=== PATIENT | female | born 1995 | race Two or more races ===

== ENCOUNTER 2024-07-26 19:37 | Emergency (ER) | payer MEDICAID, SELFPAY ==
[2024-07-26 19:38] VITALS: BMI 33.5
[2024-07-26 20:41] VITALS: BP 121/85; PULSE 84; RESP 18; TEMP 37; O2SAT 96
--- NOTE | 2024-07-26 20:43 | EDNOTE_ITS ---
ED Abdominal Pain RME/HPI General Chief Complaint: Abdominal Pain Stated complaint: LLQ PAIN Time seen by provider: 07/26/24 20:29 Arrival date/time: 07/26/24 19:37 RME / HPI RME / HPI narrative: This section includes all my notes and documentations, including HPI, PE, and ED course. Alan Rendon MD HPI: 29yo female presents to the ED for a chief complaint of groin pain that radiates down her left leg x Thursday, about 40 hours ago. Patient states her pain worsens when she walks. She reports associated urinary frequency, tingling to her thighs, and N/V. She denies any fever, chills, back pain, urinary/bowel incontinence or any other associated symptoms. She denies any history of similar symptoms. Denies any abdominal PSH. Denies any possibility of being , reporting she just finished her period on Thursday. No other complaints reported. ROS: All negative except as documented in HPI. Physical Exam: General: Alert and oriented. No acute distress when remaining still. Eyes: Conjunctivae and lids clear. ENT: No nasal congestion. Neck: Supple. Heart: RRR. Lungs: No respiratory distress. Good air movement. No rhonchi, wheezing, rales. Abdomen: Soft and nontender. Back: Equivocal lumbar tenderness. Legs: No clubbing, cyanosis, edema. Skin: Warm and dry. Neuro: Alert and oriented X 3. No peripheral motor deficits. I reviewed all diagnostic test results. My review of the abdominal CT report is NAD. My review of the lumbar spine CT report is L5-S1 6 mm central lumbar disc bulge displacing the left S1 nerve, Blood tests and urine tests remarkable for UTI. At this point, diagnoses include UTI and lumbar radiculopathy. Prescribed ABX and pain medications and recommended more outpatient workup. Based on my best medical judgment, made decision no further evaluation or treatment indicated at this time. Patient understands and agrees to the discharge instructions customized and printed, see below. Discharge Instructions from Dr. Rendon: --After evaluation, your pain radiating into the left leg is due to Sciatica (same as Lumbar Radiculopathy or Spinal Stenosis) where pinched nerve is causing your symptoms.? --This condition is difficult because normal pain medications don?t work very well on nerve pain. --Despite the pain, try to resume your normal chores and activities.? Because inactivity is terrible for this condition.? And activity won?t make your condition worse.? Use a cane of stick in your right hand to help stand and walk.? --Use Toradol and Cyclobenzaprine and lidocaine patches (to lower back if painful) as needed.? Don't expect the pain to go away completely, hoping to take the edge off.?? --When resting and sleeping, try right sided position (with your knees to your chest and bending forward).? This can take some pressure off the nerve and help your pain. --Apply ice or heat if helpful. --For UTI, take cefdinir to kill the germs causing the infection. For good hydration, increase oral fluid and maintain clear urine. If dark or yellow, increase oral fluid. --See a private doctor (outside the ER) on 07/29/2024 for recheck and further care. Ask to review all test results and official radiology reports, to make sure you receive all necessary follow-ups and monitoring, including final urine culture results. Ask for help with MRI imaging. You need to have MRI imaging to confirm the diagnosis of pinched nerve and assess the severity to get the best treatments. Some elective have surgery if severe. --Seek immediate medical care with paralysis in your foot, losing control of your bladder or bowels, saddle numbness (anal numbness), or with any concerns.?? Alan Rendon MD Related Data Previous Rx's ?Medication ?Instructions ?Recorded albuterol sulfate 90 mcg/actuation 2 puff inhalation Q 4H #6.7 grams 05/19/17 aerosol inhaler (ProAir HFA) meloxicam 15 mg tablet 15 mg PO QDAY #30 tabs 12/24 cetirizine 10 mg tablet (Zyrtec) 10 mg PO QDAY #30 tab s 08/13/20 cetirizine 5 mg-pseudoephedrine ER 1 tab PO BID #10 ta bs 08/13/20 120 mg tablet,extended release,12hr (Allergy Relief-D (cetirizine)) ibuprofen 600 mg tablet 600 mg PO QID PRN fever or p ain 08/13/20 #30 tabs albuterol sulfate 90 mcg/actuation 2 puff inhalation Q 6H PRN 02/12/21 aerosol inhaler (Ventolin HFA) shortness of breath or wheezing #8.5 grams cetirizine 10 mg tablet 10 mg PO QDAY PRN allergy sy mptoms 02/12/21 #30 tabs fluticasone 232 mcg-salmeterol 14 1 inh inhalation Q12 H #1 ea 02/12/21 mcg/actuation breath activated powdr omeprazole 20 mg capsule,delayed 20 mg PO QDAY #30 cap s 02/12/21 release amoxicillin 875 mg tablet 875 mg PO BID #20 tabs 08/31 cefdinir 300 mg capsule 300 mg PO BID #14 caps 07/27 cyclobenzaprine 10 mg tablet 10 mg PO Q8H PRN muscle s pasm #30 07/27/24 tabs ketorolac 10 mg tablet 10 mg PO Q8H PRN pain 5 days #10 07/27/24 tabs lidocaine 5 % topical patch 2 patch topical QDAY PRN p ain #30 07/27/24 (Lidoderm) ea Allergies Allergy/AdvReac Type Severity Reaction Status Date / Time No Known Allergies Allergy Verified 08/31/22 07:47 Review of Systems Review of Systems Systems Reviewed: All systems reviewed, normal except as documented Past Medical History Past Medical History CARDIAC: Negative Congestive Heart Failure RESPIRATORY: Negative Chronic Obstructive Pulmonary Disease (COPD) GENITOURINARY: Negative Renal Disease ENDOCRINE: Negative Diabetes Mellitus Type 1 or Diabetes Mellitus Type 2 Social History SMOKING STATUS: Never smoker ED Exam Narrative Physical exam: As noted in HPI. Course Quality Measures none Orders Category Date Time Status CT abdomen pelvis wo con Stat Exams 07/26/24 20:[address] lumbar spine wo con Stat Exams 07/26/24 20:44 Completed CBC Stat Lab 07/26/24 21:20 Completed CMP [Comprehensive Metabolic Panel] Stat Lab 07/26/24 21:20 Completed Drug Screen,Urine Stat Lab 07/26/24 20:56 Completed HCG Qualitative,Urine Stat Lab 07/26/24 20:56 Completed Magnesium Stat Lab 07/26/24 21:20 Completed Urinalysis Stat Lab 07/26/24 20:56 Completed Urine Culture Stat Lab 07/26/24 22:22 Ordered Levofloxacin [Levaquin] Med 07/26/24 22:23 Discontinued 500 mg PO X1 ONE Phenazopyridine HCl [Pyridium] Med 07/26/24 22:23 Discontinued 200 mg PO X1 ONE Vital Signs Vital signs: Vital Signs Temperature 98.6 F 07/26/24 20:41 Pulse Rate 84 07/26/24 20:41 Respiratory Rate 18 07/26/24 20:41 Blood Pressure 121/85 H 07/26/24 20:41 Pulse Oximetry (%) 96 07/26/24 20:41 Oxygen Delivery Method Room Air 07/26/24 20:41 Abdominal Pain MDM MDM Narrative MDM Narrative:: Scribe Attestation: 07/26/24 - Bridgett Ugalde am scribing for and in the presence of Dr. Rendon. Patient data External records reviewed:: [facility] previous records (Per chart review, patient was seen here on 12/10/22 for pharyngitis.) Clinical information provided by:: patient Social determinants that could affect healthcare access:: none Patient has the following chronic illnesses:: none How is presenting disease/condition affected by chronic disease/condition?: no chronic disease Evaluation data The following diagnostics were reviewed and interpreted by me:: lab results and radiology exam(s) Lab and/or radiology exams considered but not ordered:: none Interpretation Summary: UTI and lumbar spinal stenosis Medications / Prescriptions Medications or Prescriptions considered but not ordered:: none Medication administrations:: Medication Administration History Discontinued Medications Levofloxacin (Levofloxacin 250 Mg Tablet) 500 mg PO X1 ONE Stop: 07/26/24 22:24 Last Admin: 07/26/24 22:49 Dose: 500 mg Documented By: FALLON Phenazopyridine HCl (Phenazopyridine Hcl 100 Mg Tablet) 200 mg PO X1 ONE Stop: 07/26/24 22:24 Last Admin: 07/26/24 22:48 Dose: 200 mg Documented By: FALLON Levofloxacin, Phenazopyridine Consultations Consultation(s) initiated? (list below): No Diagnosis Differential diagnosis abdominal pain: acute appendicitis, calculus of kidney, constipation, diverticulitis, endometriosis, gastroenteritis, pancreatitis and small bowel obstruction Most likely diagnosis given after review of the tests above:: UTI and lumbar radiculopathy Admission Indicated Admission indicated?: not indicated Explain why admission is indicated or not indicated:: There was no indication for admission. Admission Request Was there a request for admission?: No Disposition Plan Disposition Plan: Discharge Discharge Attestation Discharge Attestation: The patient and all family members were given an opportunity to ask questions and understood the discharge instructions. Discharge instructions specifically effects, indications for sooner follow up or return to the emergency department, and the expected course of current diagnosis. Patient condition: Stable Discharge Plan Plan Patient Disposition: HOME (Self Care) Prescriptions/Referrals Prescriptions/Med Rec: New cyclobenzaprine 10 mg tablet 10 mg PO Q8H PRN (Reason: muscle spasm) Qty: 30 0RF ketorolac 10 mg tablet 10 mg PO Q8H PRN (Reason: pain) 5 Days Qty: 10 0RF lidocaine [Lidoderm] 5 % adhesive patch,medicated 2 patch topical QDAY PRN (Reason: pain) Qty: 30 0RF Rx Instructions: leave on most painful area for up to 12 hrs cefdinir 300 mg capsule 300 mg PO BID Qty: 14 0RF No Action albuterol sulfate [ProAir HFA] 90 mcg/actuation HFA aerosol inhaler 2 puff INH Q4H Qty: 6.7 0RF Rx Instructions: administer with spacer meloxicam 15 mg tablet 15 mg PO QDAY Qty: 30 0RF albuterol sulfate [Ventolin HFA] 90 mcg/actuation HFA aerosol inhaler 2 puff inhalation Q6H PRN (Reason: shortness of breath or wheezing) Qty: 8.5 0RF cetirizine 10 mg tablet 10 mg PO QDAY PRN (Reason: allergy symptoms) Qty: 30 0RF fluticasone propion-salmeterol 232-14 mcg/actuation aerosol powdr breath activated 1 inh inhalation Q12H Qty: 1 0RF omeprazole 20 mg capsule,delayed release(DR/EC) 20 mg PO QDAY Qty: 30 0RF cetirizine-pseudoephedrine [Allergy Relief-D (cetirizine)] 5-120 mg tablet extended release 12 hr 1 tab PO BID Qty: 10 0RF cetirizine [Zyrtec] 10 mg tablet 10 mg PO QDAY Qty: 30 0RF ibuprofen 600 mg tablet 600 mg PO QID PRN (Reason: fever or pain) Qty: 30 0RF amoxicillin 875 mg tablet 875 mg PO BID Qty: 20 0RF Referrals: Leoncio Teran MD [Primary Care Provider] - In 1 week Problem List Clinical Impression: UTI (urinary tract infection), Pinched vertebral nerve Patient/Caregiver Discharge Instructions Discharge Activity: activity as tolerated Education Materials: ED Sciatica, ED CYSTITIS Female Adult Additional Instructions: Discharge Instructions from Dr. Rendon: --After evaluation, your pain radiating into the left leg is due to Sciatica (same as Lumbar Radiculopathy or Spinal Stenosis) where pinched nerve is causing your symptoms.? --This condition is difficult because normal pain medications don?t work very well on nerve pain. --Despite the pain, try to resume your normal chores and activities.? Because inactivity is terrible for this condition.? And activity won?t make your condition worse.? Use a cane of stick in your right hand to help stand and walk.? --Use Toradol and Cyclobenzaprine and lidocaine patches (to lower back if painful) as needed.? Don't expect the pain to go away completely, hoping to take the edge off.?? --When resting and sleeping, try right sided position (with your knees to your chest and bending forward).? This can take some pressure off the nerve and help your pain. --Apply ice or heat if helpful. --For UTI, take cefdinir to kill the germs causing the infection. For good hydration, increase oral fluid and maintain clear urine. If dark or yellow, increase oral fluid. --See a private doctor (outside the ER) on 07/29/2024 for recheck and further care. Ask to review all test results and official radiology reports, to make sure you receive all necessary follow-ups and monitoring, including final urine culture results. Ask for help with MRI imaging. You need to have MRI imaging to confirm the diagnosis of pinched nerve and assess the severity to get the best treatments. Some elective have surgery if severe. --Seek immediate medical care with paralysis in your foot, losing control of your bladder or bowels, saddle numbness (anal numbness), or with any concerns.?? Print Language: British Stand Alone Forms: Jenna Award Info., Patient Portal Info Letter
--- NOTE | 2024-07-26 20:44 | XR_ITS ---
Examination: CT lumbar spine, without contrast. 2-D sagittal reconstructions. 2-D coronal reconstructions. 3-D reconstructions. Date and time of exam:July 26, 2024 at 11:11 PM Indications: Low back pain radiating down the left leg today CTDI: vol (mGy):33.2 DLP: (mGycm):917 Technique: Multiple 1.25 mm axial sections of the lumbar spine without intravenous contrast have been obtained. 2-D sagittal and coronal reconstructions have been obtained. 3-D reconstructions have been obtained. Low dose protocols were performed. One or more of the following dose reduction techniques were used; automated exposure control, adjustment of the mA and/or KV according to patient size, use of iterative reconstruction technique. Findings: Adequate alignment lumbar vertebral bodies No lumbar fracture Lumbar pedicles laminated transverse and posterior spinous processes intact L5-S1 6 mm central lumbar disc bulge contiguous and displacing the left S1 nerve. More cephalad levels unremarkable Impression: L5-S1 6 mm central lumbar disc bulge displacing the left S1 nerve, suggest elective MRI lumbar spine without contrast follow-up
--- NOTE | 2024-07-26 20:44 | XR_ITS ---
Examination: CT abdomen and pelvis without contrast. Coronal 3-D reconstructions. Sagittal 2-D reconstructions. Date and time of exam:July 26, 2024 11:08 PM Indications: Left lower abdominal pain radiating to the left leg today CTDI: vol (mGy): 11.3 DLP: (mGycm): 645 Technique: Axial images of the abdomen have been obtained, 3 mm slice thickness Intravenous contrast material has not been administered. Low dose protocols were performed. One or more of the following dose reduction techniques were used; automated exposure control, adjustment of the mA and/or KV according to patient size, use of iterative reconstruction technique. Findings: No focal liver or splenic lesions No gallstones No pancreatic or adrenal mass No renal or ureteral calculi, no hydronephrosis Normal appendix No bowel obstruction No pelvic mass Urinary bladder intact Osseous structures intact Impression: No renal or ureteral calculi, no hydronephrosis Normal appendix No bowel obstruction diverticulitis or free air
[2024-07-26 21:29] LABS: Collection Type, Urine Clean Catch
[2024-07-26 21:32] LABS: Basophils # (Auto) 0.1 Thou/mm3 (0.0-0.2); Basophils % (Auto) 1 % (0-2.5); Eosinophils # (Auto) 0.4 Thou/mm3 (0.0-0.5); Eosinophils % (Auto) 4 % (0-10); Hematocrit 42.7 % (36.0-46.0); Hemoglobin 14.5 g/dL (12.0-16.0); Immature Granulocytes % (Auto) 0 % (0-0); Immature Granulocytes Auto 0.03 Thou/mm3 (0.00-0.00); Lymphocytes # (Auto) 3.8 Thou/mm3 (1.0-4.8); Lymphocytes % (Auto) 35 % (10-50); Mean Corpuscular Hemoglobin 29.7 pg (25.0-35.0); Mean Corpuscular Volume 87 fL (80-100); Monocytes % (Auto) 9 % (0-12); Neutrophils # (Auto) 5.4 Thou/mm3 (1.8-7.7); Neutrophils % (Auto) 51 % (37-80); Nucleated Red Blood Cell % 0 /100 WBC (0); Platelet Count 340 Thou/mm3 (140-440); RDW Standard Deviation 40.9 fL (36.4-46.3); Red Blood Count 4.89 Miln/mm3 (4.00-5.20); White Blood Count 10.8 Thou/mm3 (3.6-11.0)
[2024-07-26 22:03] LABS: Bacteria,Urine Rare; Bilirubin,Urine Negative (Negative); Blood,Urine Trace (Negative); Clarity,Urine Turbid (Clear/Hazy); Color,Urine Yellow (Lt Yel-Yel); Glucose, Urine Negative (Negative); Ketones,Urine Negative (Negative); Leukocyte Esterase,Urine Positive (Negative); Nitrite,Urine Negative (Negative); Protein,Urine 1+ (Neg - Trace); RBC,Urine 5 /hpf (0-3); Specific Gravity,Urine 1.027 (1.001-1.035); Squamous Epithelial Cell,Urine 16 /hpf (0-5); WBC,Urine 85 /hpf (0-5)
[2024-07-26 22:17] LABS: Alanine Aminotransferase 13 U/L (10-49); Albumin, Serum 4.6 gm/dL (3.5-5.0); Albumin/Globulin Ratio 1.5 (1.2-2.2); Alkaline Phosphatase 74 U/L (46-116); Anion Gap 9 (7-16); Aspartate Amino Transferase 15 U/L (0-34); BUN/Creatinine Ratio 12 Ratio (12-20); Bilirubin,Total 0.3 mg/dL (0.3-1.2); Blood Urea Nitrogen 12 mg/dL (9-23); Calcium 9.3 mg/dL (8.3-10.6); Calcium (Corrected) 9.3 mg/dL (8.5-10.1); Carbon Dioxide 28.2 mMol/L (20.0-31.0); Chloride 105 mMol/L (98-107); Glucose 101 mg/dL (74-106); Magnesium 2.1 mg/dL (1.6-2.6); Osmolality,Calculated 282 (275-295); Potassium 4.5 mMol/L (3.4-5.1); Sodium 142 mMol/L (136-145); Total Protein 7.6 gm/dL (5.7-8.2); eGFR > 60 See Note
[2024-07-26 22:36] LABS: HCG Qualitative,Urine Negative
[2024-07-26] MEDS: PHENAZOPYRIDINE HCL 100 MG TABLET 200 MG PO (22:48)
[2024-07-26] MEDS: LEVOFLOXACIN 250 MG TABLET 500 MG PO (22:49)
[2024-07-26 22:53] LABS: Amphetamine/Methamp Scrn,U Negative (Negative); Barbiturate Screen,Urine Negative (Negative); Benzodiazepines Screen,Urine Negative (Negative); Benzoylecgonine Screen, Ur Negative (Negative); Fentanyl Screen,Urine Negative (Negative); Opiate Screen,Urine Positive (Negative); THC Screen,Urine Positive (Negative)
== END 2024-07-27 00:21 | disposition home or self-care (01) ==
PROVIDERS: Physician Assistant; Emergency Provider Emergency Medicine; PCP Obstetrics & Gynecology
DX: N39.0 Urinary tract infection, site not specified (principal); R10.32 Left lower quadrant pain; G58.9 Mononeuropathy, unspecified
CPT/HCPCS: 36415; 72131; 74176; 80053; 80307; 81001; 81025; 83735; 85025; 87086; 99284; A9270

== ENCOUNTER 2024-08-24 09:04 | Emergency (ER) | payer MEDICAID, SELFPAY ==
--- NOTE | 2024-08-24 09:31 | XR_ITS ---
Examination: Abdomen sonogram, Limited Date and time of exam: August 24, 2024 10:29 AM INDICATIONS: Right upper abdominal pain beginning one week ago Technique: Real-time morgan scale transabdominal sonographic images of the upper abdomen obtained. Findings: Normal gallbladder Normal common bile duct 0.3 cm Pancreatic head 2.8 cm Liver 14 cm smooth contour no focal liver lesions Normal hepatopedal portal venous flow Patent IVC IMPRESSION: Normal gallbladder
--- NOTE | 2024-08-24 09:32 | PD.EDRME ---
Rapid Medical Screening Exam RME Arrival date/time: 08/24/24 09:04 29-year-old female presents to the emergency department today for complaint of right upper quadrant abdominal pain Chief Complaint: Abdominal Pain Time Seen by Provider: 08/24/24 09:08 Vital signs: Vital Signs Temperature 97.9 F 08/24/24 09:34 Pulse Rate 93 08/24/24 09:34 Respiratory Rate 16 08/24/24 09:34 Blood Pressure 118/89 H 08/24/24 09:34 Pulse Oximetry (%) 97 08/24/24 09:34 Oxygen Delivery Method Room Air 08/24/24 09:34
[2024-08-24 09:34] VITALS: BP 118/89; PULSE 93; RESP 16; TEMP 36.6; O2SAT 97; BMI 33.5
[2024-08-24] MEDS: IBUPROFEN TAB 400 MG TABLET 800 MG PO (09:41)
[2024-08-24] MEDS: METOCLOPRAMIDE INJ 5 MG/ML VIAL 2 ML 10 MG IM (09:42)
[2024-08-24 10:09] LABS: Basophils # (Auto) 0.1 Thou/mm3 (0.0-0.2); Basophils % (Auto) 1 % (0-2.5); Eosinophils # (Auto) 0.4 Thou/mm3 (0.0-0.5); Eosinophils % (Auto) 5 % (0-10); Hematocrit 38.2 % (36.0-46.0); Hemoglobin 13.2 g/dL (12.0-16.0); Immature Granulocytes % (Auto) 0 % (0-0); Immature Granulocytes Auto 0.02 Thou/mm3 (0.00-0.00); Lymphocytes % (Auto) 33 % (10-50); Mean Corpuscular HGB Conc 34.6 g/dl (31.0-37.0); Mean Corpuscular Hemoglobin 29.9 pg (25.0-35.0); Mean Corpuscular Volume 86 fL (80-100); Monocytes # (Auto) 0.6 Thou/mm3 (0.0-0.8); Monocytes % (Auto) 7 % (0-12); Neutrophils # (Auto) 4.8 Thou/mm3 (1.8-7.7); Neutrophils % (Auto) 54 % (37-80); Nucleated Red Blood Cell % 0 /100 WBC (0); Platelet Count 342 Thou/mm3 (140-440); RDW Standard Deviation 39.7 fL (36.4-46.3); Red Blood Count 4.42 Miln/mm3 (4.00-5.20); White Blood Count 8.9 Thou/mm3 (3.6-11.0)
[2024-08-24 10:23] LABS: Alanine Aminotransferase 12 U/L (10-49); Albumin, Serum 4.2 gm/dL (3.5-5.0); Albumin/Globulin Ratio 1.4 (1.2-2.2); Alkaline Phosphatase 76 U/L (46-116); Anion Gap 8 (7-16); Aspartate Amino Transferase 12 U/L (0-34); BUN/Creatinine Ratio 15 Ratio (12-20); Bilirubin,Total 0.3 mg/dL (0.3-1.2); Blood Urea Nitrogen 12 mg/dL (9-23); Calcium 8.6 mg/dL (8.3-10.6); Calcium (Corrected) 8.6 mg/dL (8.5-10.1); Carbon Dioxide 28.1 mMol/L (20.0-31.0); Chloride 106 mMol/L (98-107); Creatinine (Component) 0.8 mg/dL (0.6-1.3); Estimated Creatinine Clearance 113.7 mL/min (>60); Globulin 2.9 gm/dL (2.3-3.5); Glucose 92 mg/dL (74-106); Lipase 28 U/L (12-53); Osmolality,Calculated 282 (275-295); Potassium 4.1 mMol/L (3.4-5.1); Sodium 142 mMol/L (136-145); Total Protein 7.1 gm/dL (5.7-8.2); eGFR > 60 See Note
[2024-08-24 11:45] LABS: Collection Type, Urine Clean Catch
--- NOTE | 2024-08-24 12:07 | EDNOTE_ITS ---
<Statement entered by Ivonne Sarah MD - 08/25/24 06:24> As co-signing physician, I was present and available for consult prn. I concur with the plan and care as documented by the midlevel provider. ED General RME/HPI General Chief complaint: Abdominal Pain Stated complaint: right upper abdominal pain x1 week Time Seen by Provider: 08/24/24 09:08 Arrival date/time: 08/24/24 09:04 29-year-old female presents to the ED with a complaint of right upper quadrant abdominal pain with radiation to her right shoulder. She states it woke her up out of sound sleep last night. She denies any fevers or chills, nausea or vomiting, diarrhea or constipation. Last menstrual period is current. Limitations: no limitations RME / HPI RME / HPI narrative: 08/24/24 09:04 29-year-old female presents to the emergency department today for complaint of right upper quadrant abdominal pain Related Data Previous Rx's ?Medication ?Instructions ?Recorded albuterol sulfate 90 mcg/actuation 2 puff inhalation Q 4H #6.7 grams 05/19/17 aerosol inhaler (ProAir HFA) meloxicam 15 mg tablet 15 mg PO QDAY #30 tabs 12/24 cetirizine 10 mg tablet (Zyrtec) 10 mg PO QDAY #30 tab s 08/13/20 cetirizine 5 mg-pseudoephedrine ER 1 tab PO BID #10 ta bs 08/13/20 120 mg tablet,extended release,12hr (Allergy Relief-D (cetirizine)) ibuprofen 600 mg tablet 600 mg PO QID PRN fever or p ain 08/13/20 #30 tabs albuterol sulfate 90 mcg/actuation 2 puff inhalation Q 6H PRN 02/12/21 aerosol inhaler (Ventolin HFA) shortness of breath or wheezing #8.5 grams cetirizine 10 mg tablet 10 mg PO QDAY PRN allergy sy mptoms 02/12/21 #30 tabs fluticasone 232 mcg-salmeterol 14 1 inh inhalation Q12 H #1 ea 02/12/21 mcg/actuation breath activated powdr omeprazole 20 mg capsule,delayed 20 mg PO QDAY #30 cap s 02/12/21 release amoxicillin 875 mg tablet 875 mg PO BID #20 tabs 08/31 cefdinir 300 mg capsule 300 mg PO BID #14 caps 07/27 cyclobenzaprine 10 mg tablet 10 mg PO Q8H PRN muscle s pasm #30 07/27/24 tabs lidocaine 5 % topical patch 2 patch topical QDAY PRN p ain #30 07/27/24 (Lidoderm) ea meloxicam 15 mg tablet 15 mg PO QDAY #10 tabs 08/24 pantoprazole 40 mg tablet,delayed 40 mg PO QDAY #14 ta bs 08/24/24 release (Protonix) Allergies Allergy/AdvReac Type Severity Reaction Status Date / Time No Known Allergies Allergy Verified 08/31/22 07:47 Review of Systems Review of Systems Systems Reviewed: All systems reviewed, normal except as documented Past Medical History Past Medical History CARDIAC: Negative Congestive Heart Failure RESPIRATORY: Negative Chronic Obstructive Pulmonary Disease (COPD) GENITOURINARY: Negative Renal Disease ENDOCRINE: Negative Diabetes Mellitus Type 1 or Diabetes Mellitus Type 2 Social History SMOKING STATUS: Never smoker ED Exam Narrative Physical exam: 29-year-old female, no acute distress, afebrile and nontoxic-appearing. Lungs are clear, regular rate and rhythm without murmurs. Abdomen is soft, no percussive tenderness. Positive tenderness in the right upper quadrant. No rebound or guarding. General Limitations: Present no limitations General appearance: Present alert and in no apparent distress Course Course Course Narrative: 29-year-old female presents to the ED with a complaint of right upper quadrant abdominal pain with radiation to her right shoulder. She states it woke her up out of sound sleep last night. She denies any fevers or chills, nausea or vomiting, diarrhea or constipation. Last menstrual period is current. 29-year-old female, no acute distress, afebrile and nontoxic-appearing. Lungs are clear, regular rate and rhythm without murmurs. Abdomen is soft, no percussive tenderness. Positive tenderness in the right upper quadrant. No rebound or guarding. Labs reveal a normal white count, normal H&H and platelets chemistry panel is completely normal with a normal lipase and normal LFTs. GB US: Findings: Normal gallbladder Normal common bile duct 0.3 cm. Pancreatic head 2.8 cm. Liver 14 cm smooth contour no focal liver lesions. Normal hepatopedal portal venous flow. Patent IVC IMPRESSION: Normal gallbladder CT Abd/Pelvis: Mild to moderate free fluid in the pelvis, recommend pelvic sonography follow-up Quality Measures none Orders Category Date Time Status CT Screening NOW Care 08/24/24 12:[address] Screening X1 Care 08/24/24 12:38 Active IV [Insert IV] NOW Care 08/24/24 12:[address] abdomen pelvis w con Stat Exams 08/24/24 12:38 Completed US gall bladder Stat Exams 08/24/24 09:31 Completed CBC Stat Lab 08/24/24 09:45 Completed Comprehensive Metabolic Panel Stat Lab 08/24/24 09:45 Completed HCG Qualitative,Urine Stat Lab 08/24/24 11:41 Completed Lipase Stat Lab 08/24/24 09:45 Completed UA, C/S IF [Urinalysis, C/S if Indicated] Stat Lab 08/24/24 11:41 Completed Ibuprofen Tab [Motrin Tab] Med 08/24/24 09:31 Discontinued 800 mg PO X1 ONE Metoclopramide Inj [Reglan Inj] Med 08/24/24 09:31 Discontinued 10 mg IM X1 ONE Vital Signs Vital signs: Vital Signs Temperature 97.9 F 08/24/24 09:34 Pulse Rate 93 08/24/24 09:34 Respiratory Rate 16 08/24/24 09:34 Blood Pressure 118/89 H 08/24/24 09:34 Pulse Oximetry (%) 97 08/24/24 09:34 Oxygen Delivery Method Room Air 08/24/24 09:34 Discharge Plan Plan Patient Disposition: HOME (Self Care) Discharge Disposition comment: Stable Prescriptions/Referrals Prescriptions/Med Rec: New meloxicam 15 mg tablet 15 mg PO QDAY Qty: 10 0RF pantoprazole [Protonix] 40 mg tablet,delayed release (DR/EC) 40 mg PO QDAY Qty: 14 0RF No Action albuterol sulfate [ProAir HFA] 90 mcg/actuation HFA aerosol inhaler 2 puff INH Q4H Qty: 6.7 0RF Rx Instructions: administer with spacer meloxicam 15 mg tablet 15 mg PO QDAY Qty: 30 0RF albuterol sulfate [Ventolin HFA] 90 mcg/actuation HFA aerosol inhaler 2 puff inhalation Q6H PRN (Reason: shortness of breath or wheezing) Qty: 8.5 0RF cetirizine 10 mg tablet 10 mg PO QDAY PRN (Reason: allergy symptoms) Qty: 30 0RF fluticasone propion-salmeterol 232-14 mcg/actuation aerosol powdr breath activated 1 inh inhalation Q12H Qty: 1 0RF omeprazole 20 mg capsule,delayed release(DR/EC) 20 mg PO QDAY Qty: 30 0RF cetirizine-pseudoephedrine [Allergy Relief-D (cetirizine)] 5-120 mg tablet extended release 12 hr 1 tab PO BID Qty: 10 0RF cetirizine [Zyrtec] 10 mg tablet 10 mg PO QDAY Qty: 30 0RF ibuprofen 600 mg tablet 600 mg PO QID PRN (Reason: fever or pain) Qty: 30 0RF amoxicillin 875 mg tablet 875 mg PO BID Qty: 20 0RF cyclobenzaprine 10 mg tablet 10 mg PO Q8H PRN (Reason: muscle spasm) Qty: 30 0RF lidocaine [Lidoderm] 5 % adhesive patch,medicated 2 patch topical QDAY PRN (Reason: pain) Qty: 30 0RF Rx Instructions: leave on most painful area for up to 12 hrs cefdinir 300 mg capsule 300 mg PO BID Qty: 14 0RF Referrals: Reza Teran MD [Primary Care Provider] - In 1 week Problem List Clinical Impression: Abdominal pain Patient/Caregiver Discharge Instructions Diet Instructions: Follow a low-fat diet to see if this helps with your symptoms. Education Materials: ED Abdominal Pain Unkn Cause Fem Additional Instructions: Follow-up with your primary care physician, you may need an MRCP or an ERCP for definitive diagnosis of the right upper quadrant pain. You will also need an outpatient pelvic ultrasound for evaluation of ovarian cysts. Follow-up with your primary care physician in 24 to 48 hours. Return to the ED for any new or worsening symptoms. Print Language: Kazakh Stand Alone Forms: Jenna Award Info., Patient Portal Info Letter PA/RADIO TELEVISION ANNOUNCER Supervising Physician PA/RADIO TELEVISION ANNOUNCER Supervising Physician: Dr. Sarah MDM Narrative [facility] hospital course (for use when minimal MDM required): 29-year-old female presents to the ED with a complaint of right upper quadrant abdominal pain with radiation to her right shoulder. She states it woke her up out of sound sleep last night. She denies any fevers or chills, nausea or vomiting, diarrhea or constipation. Last menstrual period is current. 29-year-old female, no acute distress, afebrile and nontoxic-appearing. Lungs are clear, regular rate and rhythm without murmurs. Abdomen is soft, no percussive tenderness. Positive tenderness in the right upper quadrant. No rebound or guarding. Labs reveal a normal white count, normal H&H and platelets chemistry panel is completely normal with a normal lipase and normal LFTs. GB US: Findings: Normal gallbladder Normal common bile duct 0.3 cm. Pancreatic head 2.8 cm. Liver 14 cm smooth contour no focal liver lesions. Normal hepatopedal portal venous flow. Patent IVC IMPRESSION: Normal gallbladder CT Abd/Pelvis: Mild to moderate free fluid in the pelvis, recommend pelvic sonography follow-up Clinical Information Provided by: patient Medical Records reviewed None Meds/Rx considered, not ordered None Labs/Rad/Tests considered, not ordered None Chronic Illness/Social Conditions which may negatively complicate care or outcome(s)-explain: other EKG EKG not done Labs Labs: Interpreted by nj Lab(s) Interpretation(s): Labs reveal a normal white count, normal H&H and platelets chemistry panel is completely normal with a normal lipase and normal LFTs. Imaging Imaging Interpretation(s): GB US: Findings: Normal gallbladder Normal common bile duct 0.3 cm. Pancreatic head 2.8 cm. Liver 14 cm smooth contour no focal liver lesions. Normal hepatopedal portal venous flow. Patent IVC IMPRESSION: Normal gallbladder CT Abd/Pelvis: Mild to moderate free fluid in the pelvis, recommend pelvic sonography follow-up Medication Administration(s) Medication Administration History Discontinued Medications Ibuprofen (Ibuprofen Tab 400 Mg Tablet) 800 mg PO X1 ONE Stop: 08/24/24 09:32 Last Admin: 08/24/24 09:41 Dose: 800 mg Documented By: MICHAEL Metoclopramide HCl (Metoclopramide Inj 5 Mg/Ml Vial 2 Ml) 10 mg IM X1 ONE; Protocol Stop: 08/24/24 09:32 Last Admin: 08/24/24 09:42 Dose: 10 mg Documented By: MICHAEL Ibuprofen 800 mg p.o., metoclopramide 10 mg IM. Diagnosis Differential Diagnosis ED Complaint MDM: Cholelithiasis/cholecystitis, gastritis, PUD, pancreatitis, ovarian cyst Diagnoses ruled out and/or further discussions: Cholelithiasis, cholecystitis, pancreatitis
[2024-08-24 12:12] LABS: Bacteria,Urine Rare; Bilirubin,Urine Negative (Negative); Blood,Urine 3+ (Negative); Clarity,Urine Turbid (Clear/Hazy); Color,Urine Yellow (Lt Yel-Yel); Culture Indicated,Urine Not Indicated; Glucose, Urine Trace (Negative); Ketones,Urine Trace (Negative); Leukocyte Esterase,Urine Positive (Negative); Nitrite,Urine Negative (Negative); Protein,Urine 1+ (Neg - Trace); RBC,Urine 1 /hpf (0-3); Specific Gravity,Urine 1.042 (1.001-1.035); Squamous Epithelial Cell,Urine 10 /hpf (0-5); WBC,Urine 3 /hpf (0-5)
[2024-08-24 12:17] LABS: HCG Qualitative,Urine Negative
--- NOTE | 2024-08-24 12:38 | XR_ITS ---
Examination: CT abdomen with intravenous contrast CT pelvis with intravenous contrast 2-D coronal reconstructions 2-D sagittal reconstructions Date and time of exam:August 24, 2024 1411 hours INDICATIONS: Onset right upper abdominal pain beginning one week ago. CTDI: vol (mGy) 11.4 DLP: (mGycm) 655 Technique: Multiple axial sections of the abdomen and pelvis have been obtained. 64 slice high-resolution scanner used. 3 mm axial sections have been obtained, post intravenous injection 60 cc [id number] 2-D sagittal, coronal reconstructions obtained. Low dose protocols were performed. One or more of the following dose reduction techniques were used; automated exposure control, adjustment of the mA and/or KV according to patient size, use of iterative reconstruction technique. Findings: No focal liver or splenic lesions No definite gallstones No pancreatic mass No renal or ureteral calculi, no hydronephrosis No bowel obstruction Normal appendix No diverticulitis Mild to moderate free fluid in the pelvis No pelvic mass Urinary bladder intact IMPRESSION: Mild to moderate free fluid in the pelvis, recommend pelvic sonography follow-up
== END 2024-08-24 16:43 | disposition home or self-care (01) ==
PROVIDERS: Nurse Practitioner Primary Care; Emergency Provider Emergency Medicine; PCP Internal Medicine
DX: R10.11 Right upper quadrant pain (principal)
CPT/HCPCS: 36415; 74177; 76705; 80053; 81001; 81025; 83690; 85025; 96372; 99285; A4649; J2765; Q9967; A9270

== ENCOUNTER → 2024-09-19 | Outpatient (CLI) | payer MEDICAID, SELFPAY ==
--- NOTE | 2024-09-19 15:00 | XR_ITS ---
Examination: Pelvic ultrasound, transabdominal, complete Technique: Transabdominal ultrasound of the pelvis performed using grayscale imaging Date and time of exam: September 19, 2024 1512 hours INDICATIONS: Lower abdominal pain pelvic pain today moderate free fluid in the pelvis on CT pelvis study August 24, 2024 FINDINGS: Uterus 7.5 cm endometrial stripe 0.7 cm No uterine mass or intrauterine gestation Ovaries obscured by bowel gas No fluid in the cul-de-sac IMPRESSION: Limited study No uterine mass or intrauterine gestation
== END | disposition home or self-care (01) ==
PROVIDERS: PCP Nurse Practitioner Family; Referring Provider Nurse Practitioner Family; Visit Provider Nurse Practitioner Family
DX: R18.8 Other ascites (principal)
CPT/HCPCS: 76856

== ENCOUNTER 2025-01-04 10:14 | Outpatient (AMB) | payer MEDICAID, SELFPAY ==
[2025-01-04 10:37] VITALS: BP 122/82; PULSE 85; RESP 16; TEMP 36.4; O2SAT 95; BMI 38.5
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
== END 2025-01-04 11:01 | disposition home or self-care (01) ==
LOC: HODSOBC 10:14
PROVIDERS: Supervising Provider Obstetrics & Gynecology; Visit Provider Obstetrics & Gynecology
DX: Z34.01 Encounter for supervision of normal first pregnancy, first trimester (principal); Z3A.11 11 weeks gestation of pregnancy; Z87.891 Personal history of nicotine dependence
CPT/HCPCS: 99214; G0463

== ENCOUNTER → 2025-01-12 | Outpatient (CLI) | payer MEDICAID, SELFPAY ==
--- NOTE | 2025-01-12 09:30 | XR_ITS ---
Examination: Complete OB ultrasound, less than 14 weeks, transabdominal Date and time of exam: January 12, 2025, 0955 hours INDICATIONS: 11 week by history, labor evaluation Technique: Obstetrical ultrasound images less than 14 weeks performed via transabdominal imaging Findings: A normal shaped single intrauterine gestation is present in the uterus. CRL 5.1 cm corresponds to 11 week 6 day gestational age. Cardiac motion 152 BPM Ultrasonographic survey of visible and placental structures unremarkable. Amniotic fluid volume appears appropriate for this estimated gestational age. Right ovary 3.3 cm arterial flow. Left ovary obscured by bowel gas. IMPRESSION: Viable intrauterine gestation 11 weeks 6 days.
== END | disposition home or self-care (01) ==
LOC: CDIM 09:43
PROVIDERS: PCP Internal Medicine; Referring Provider Obstetrics & Gynecology; Visit Provider Obstetrics & Gynecology
DX: Z34.00 Encounter for supervision of normal first pregnancy, unspecified trimester (principal); Z3A.11 11 weeks gestation of pregnancy
CPT/HCPCS: 76801

== ENCOUNTER 2025-01-27 09:47 | Outpatient (AMB) | payer MEDICAID, SELFPAY ==
[2025-01-27 10:49] VITALS: BP 130/85; PULSE 113; RESP 18; TEMP 36.2; O2SAT 98; BMI 37.3
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
== END 2025-01-27 11:41 | disposition home or self-care (01) ==
LOC: HODSOBC 09:47
PROVIDERS: Supervising Provider Obstetrics & Gynecology; Visit Provider Obstetrics & Gynecology
DX: O09.892 Supervision of other high risk pregnancies, second trimester (principal); O98.312 Other infections with a predominantly sexual mode of transmission complicating pregnancy, second trimester; A56.8 Sexually transmitted chlamydial infection of other sites; O99.512 Diseases of the respiratory system complicating pregnancy, second trimester; J45.909 Unspecified asthma, uncomplicated; Z3A.14 14 weeks gestation of pregnancy; Z87.891 Personal history of nicotine dependence; Z79.899 Other long term (current) drug therapy
CPT/HCPCS: 99213; G0463

== ENCOUNTER 2025-03-02 10:48 | Outpatient (AMB) | payer MEDICAID, SELFPAY ==
[2025-03-02 10:53] VITALS: BP 129/87; PULSE 97; RESP 18; TEMP 36.4; O2SAT 98; BMI 39.6
--- NOTE | 2025-03-02 10:53 | OBCLNT_ITS ---
Vital Signs 03/02/25 10:53 Height 1.63 m Height Method Stated Weight 105.233 kg Weight Measurement Method Standing Scale BMI 39.6 BP 129/87 H Blood Pressure Source Automatic Cuff Blood Pressure Location Right Upper Arm Position Sitting Respiration 18 Pulse 97 Pulse Source Monitor Temp 97.6 F Temp Source Temporal Artery Scan Pulse Oximetry (%) 98 Oxygen Delivery Method Room Air Allergies/Home Meds Allergies & Medications Allergies No Known Allergies Allergy (Verified 03/02/25 10:54) Medication Reconciliation albuterol sulfate 90 mcg/actuation aerosol inhaler (ProAir HFA) 2 puff inh alation Q4H #6.7 grams 05/19/17 [Rx Confirmed 03/02/25] azithromycin 500 mg tablet 2,000 mg (4 x 500 mg) PO QDAY #9 tabs 01/28/25 [Rx Confirmed 03/02/25] Immunizations Immunizations Flu Vaccine in the Last 12 Months: No Flu Vaccine Exclusion Criteria: Refused by Patient Care OB Visit Log OB Flowsheet Initial Weight: Not Recorded Date -?-?-?-?-?-?-?-?-?-?-?-?- EGA Weight BP Alb Glu CTX Pres Fundal ht FHR Mov Dilation Station Effacement Hx Notes Visit Note 01/27/25 -?-?-?-?-?-?-?-?-?-?-?-?- 14w 5d 98.997 kg 130/85 15 145 No cramping or bleeding. labs reviewed with her today. Patient positive for chlamydia. Will treat and treat her partner. 03/02/25 -?-?-?-?-?-?-?-?-?-?-?-?- 19w 4d 105.233 kg 129/87 21 144 ASIM Calculator Estimated Delivery Date Method Current WG Current Estimate 07/23/25 LMP (Certain) 19w 5d Other Estimates 07/25/25 Ultrasound #1 19w 3d Expected Delivery Route/Plan 29-year-old G1, P0 Anticipate Specific Issue/Plans No chronic medical problems except mild asthma labs: [facility]: 01/04/2025: O+/antibody screen negative/rubella nonimmune /RPR nonreactive/hepatitis B surface antigen negative/hepatitis C negative/HIV negative/gonorrhea negative/chlamydia positive/hemoglobin 13.5/hematocrit 41.3/urine culture negative/hemoglobin A1c 5.6/NIPT 46XX/SMA negative/CF negative Ultrasound [facility] 01/12/25: 11 6/7 weeks [facility] 07/24/2025 Notes Visit Date: 03/02/25 Last Updated by: Naheed Callahan MD S=D / FHRate 144/ Plan MSAFP and urine for GC and CT and follow up in 4 weeks Visit Date: 01/27/25 Last Updated by: Ana Angelo ([facility] Clinic)MD Positive chlamydia. Will treat partner and patient. Rubella nonimmune. Having a gender reveal democrat. NIPT normal. Office Procedures OBC Clinic LOC & Office Proc's Nursing/Assessment Patient Status: Established Patient OB Clinic Nursing Assessment: Medication Reconciliation, Update PMH in EMR and Vital Signs OB Clinic Coordination of Care: Complex Care and Chronic Disease 1-5, Education Complex Pt/Fam, Consent,records obtained, informed consent, Lab and Imaging orders, Results/Orders obtained and Staff clarify orders Special Needs: Heart tones Established Patient Charge Established Patient Point Assignment: 140 Established Patient Point Charge: EP Level 4 (120-155) Assessment & Plan Additional Plan S=D / FHRate 144/ Plan MSAFP and urine for GC and CT and follow up in 4 weeks 29 years old
== END 2025-03-02 12:00 | disposition home or self-care (01) ==
LOC: HODSOBC 10:48
PROVIDERS: Supervising Provider Obstetrics & Gynecology; Visit Provider Obstetrics & Gynecology
DX: O09.892 Supervision of other high risk pregnancies, second trimester (principal); O99.512 Diseases of the respiratory system complicating pregnancy, second trimester; J45.909 Unspecified asthma, uncomplicated; Z3A.19 19 weeks gestation of pregnancy; Z28.21 Immunization not carried out because of patient refusal; Z79.899 Other long term (current) drug therapy
CPT/HCPCS: 99214; G0463

== ENCOUNTER 2025-03-31 09:59 | Outpatient (AMB) | payer MEDICAID, SELFPAY ==
[2025-03-31 10:27] VITALS: BP 132/83; PULSE 95; RESP 18; TEMP 36.6; O2SAT 95; BMI 41.1
--- NOTE | 2025-03-31 10:27 | OBCLNT_ITS ---
Vital Signs 03/31/25 10:27 Height 1.63 m Height Method Stated Weight 109.316 kg Weight Measurement Method Standing Scale BMI 41.1 BP 132/83 H Blood Pressure Source Automatic Cuff Blood Pressure Location Right Upper Arm Position Sitting Respiration 18 Pulse 95 Pulse Source Monitor Temp 97.9 F Temp Source Temporal Artery Scan Pulse Oximetry (%) 95 Oxygen Delivery Method Room Air Allergies/Home Meds Allergies & Medications Allergies No Known Allergies Allergy (Verified 03/31/25 10:29) Medication Reconciliation albuterol sulfate 90 mcg/actuation aerosol inhaler (ProAir HFA) 2 puff inh alation Q4H #6.7 grams 05/19/17 [Rx Confirmed 03/31/25] azithromycin 500 mg tablet 2,000 mg (4 x 500 mg) PO QDAY #9 tabs 01/28/25 [Rx Confirmed 03/31/25] Immunizations Immunizations Flu Vaccine in the Last 12 Months: No Flu Vaccine Exclusion Criteria: No Exclusion Criteria Care OB Visit Log OB Flowsheet Initial Weight: Not Recorded Date -?-?-?-?-?-?-?-?-?-?-?-?- EGA Weight BP Alb Glu CTX Pres Fundal ht FHR Mov Dilation Station Effacement Hx Notes Visit Note 01/27/25 -?-?-?-?-?-?-?-?-?-?-?-?- 14w 5d 98.997 kg 130/85 15 145 No cramping or bleeding. labs reviewed with her today. Patient positive for chlamydia. Will treat and treat her partner. 03/02/25 -?-?-?-?-?-?-?-?-?-?-?-?- 19w 4d 105.233 kg 129/87 21 144 03/31/25 -?-?-?-?-?-?-?-?-?-?-?-?- 23w 5d 109.316 kg 132/83 24 153 active ASIM Calculator Estimated Delivery Date Method Current WG Current Estimate 07/23/25 LMP (Certain) 24w 0d Other Estimates 07/25/25 Ultrasound #1 23w 5d Expected Delivery Route/Plan 29-year-old G1, P0 Anticipate Specific Issue/Plans No chronic medical problems except mild asthma labs: [facility]: 01/04/2025: O+/antibody screen negative/rubella nonimmune /RPR nonreactive/hepatitis B surface antigen negative/hepatitis C negative/HIV negative/gonorrhea negative/chlamydia positive/hemoglobin 13.5/hematocrit 41.3/urine culture negative/hemoglobin A1c 5.6/NIPT 46XX/SMA negative/CF negative Ultrasound [facility] 01/12/25: 11 6/7 weeks [facility] 07/24/2025 Notes Visit Date: 03/31/25 Last Updated by: Naheed Callahan MD MSAFP negative and GC and CT negative on 03/03/2025 / needs anatomy scan and will refer again / order one hour GTT and also RPR and cBC to be done after new year she is a behavioral health care coordinator and she states she has induced carpel tunnel problems / refer to Dr Velasco for evaluation and will give restricted a ctivity note Visit Date: 03/02/25 Last Updated by: Naheed Callahan MD S=D / FHRate 144/ Plan MSAFP and urine for GC and CT and follow up in 4 weeks Visit Date: 01/27/25 Last Updated by: Ana Angelo ([facility])MD Positive chlamydia. Will treat partner and patient. Rubella nonimmune. Having a gender reveal constitution party. NIPT normal. Office Procedures OBC Clinic LOC & Office Proc's Nursing/Assessment Patient Status: Established Patient OB Clinic Nursing Assessment: Medication Reconciliation, Update PMH in EMR and Vital Signs OB Clinic Coordination of Care: Complex Care and Chronic Disease 1-5, Consent,records obtained, informed consent, Lab and Imaging orders, Ref for ancillary service and Staff clarify orders Special Needs: Heart tones Established Patient Charge Established Patient Point Assignment: 145 Established Patient Point Charge: EP Level 4 (120-155) Assessment & Plan Diagnosis / Problem List (1) : Status: Acute Qualifiers: Weeks of gestation: 13 weeks Qualified Code(s): Z3A.13 - 13 weeks gestation of (2) Obesity affecting in second trimester: Status: Acute (3) Carpal tunnel syndrome: Status: Acute
== END 2025-03-31 11:41 | disposition home or self-care (01) ==
LOC: HODSOBC 09:59
PROVIDERS: Supervising Provider Obstetrics & Gynecology; Visit Provider Obstetrics & Gynecology
DX: O09.892 Supervision of other high risk pregnancies, second trimester (principal); O99.212 Obesity complicating pregnancy, second trimester; O99.352 Diseases of the nervous system complicating pregnancy, second trimester; G56.00 Carpal tunnel syndrome, unspecified upper limb; O99.512 Diseases of the respiratory system complicating pregnancy, second trimester; J45.909 Unspecified asthma, uncomplicated; Z3A.23 23 weeks gestation of pregnancy; Z79.899 Other long term (current) drug therapy
CPT/HCPCS: 99214; G0463